=== PATIENT | male | born 1985 | race African-American/Black ===

== ENCOUNTER 2017-06-23 18:20 | Emergency (ER) | payer OTHER ==
[~2017-06-23] VITALS: Ht 165.1 cm; Wt 68.0 kg
[2017-06-23 19:07] LABS: PLATELET COUNT 314 K/uL (142-355)
[2017-06-23 19:16] LABS: SODIUM 135 mmol/L (136-145)
[2017-06-23 19:53] VITALS: BP 113/68; TEMP 97.5
== END 2017-06-23 19:55 | disposition home or self-care (01) ==
LOC: ED 18:20
DX: A08.4 Viral intestinal infection, unspecified (principal)
CPT/HCPCS: 36415; 80053; 82150; 83690; 85027; 96374; 99283; J2405